=== PATIENT | female | born 1935 | race Caucasian/White ===

== ENCOUNTER 2019-06-04 10:57 | Inpatient (IN) ==
[2019-06-04 11:53] LABS: BASO# 0.04 X1000 (0.0-0.2); BASO% 1.2 % (0.0-0.8); EOS# 0.08 X1000 (0.0-0.7); EOS% 2.3 % (0.0-10.0); HEMATOCRIT 38.1 % (37.0-47.0); HEMOGLOBIN 12.6 g/dL (12.0-16.0); LYMPH# 0.72 X1000 (1.2-3.4); LYMPH% 20.9 % (20.5-51.1); MCH 31.7 PG (27-31); MCHC 33.1 g/dL (33-37); MONO# 0.38 X1000 (0.11-0.59); MPV 10.4 FL (7.4-10.4); NEUT# 2.23 X1000 (1.4-6.5); NEUT% 64.6 % (42.2-75.2); PLT 181 X1000 (130-400); RBC 3.97 XMIL (4.2-5.4); WBC 3.45 X1000 (4.8-10.8)
[2019-06-04 12:00] LABS: URINE SOURCE CLEAN CATCH
[2019-06-04 12:19] LABS: BILIRUBIN URINE NEGATIVE (NEGATIVE); BLOOD URINE NEGATIVE (NEGATIVE); COLOR YELLOW; GLUCOSE URINE NEGATIVE (NEGATIVE); KETONE URINE NEGATIVE (NEGATIVE); LEUKOCYTES URINE NEGATIVE (NEGATIVE); NITRITE URINE NEGATIVE (NEGATIVE); PROTEIN URINE 30 mg/dL (NEGATIVE); SP GRAVITY URINE 1.021; TURBIDITY URINE CLEAR (CLEAR); UROBILINOGEN URINE NORMAL (NORMAL)
[2019-06-04 12:20] LABS: ALB/GLOB RATIO 1.4; ALBUMIN 4.3 g/dL (3.5-5.0); CALCIUM 8.3 mg/dL (8.8-10.2); CREATININE 1.6 mg/dL (0.5-0.9); POTASSIUM 3.7 mmol/L (3.5-5.1); TOTAL BILIRUBIN 0.33 mg/dL (0.20-1.00); TOTAL PROTEIN 7.3 g/dL (6.3-8.3)
[2019-06-04 12:20] LABS: UR EPITHELIAL CELLS <10 /HPF (<10); URINE BACTERIA NEGATIVE /HPF; URINE RBC <10 /HPF (<10); URINE WBC <10 /HPF (<10)
[2019-06-04] MEDS ORDERED: ZOFRAN IV ONE ×2 (13:29→15:34)
[2019-06-04] MEDS: NS 500 ML IV ONE ×4 (13:29→16:20)
--- NOTE | 2019-06-04 14:38 | Diag Imaging Result Doc PS360 ---
EXAM: CT ABDOMEN/PELVIS W/O CONTRAST INDICATION: LLQ PAIN, TENDERNESS TECHNIQUE: This exam was performed using automated exposure control, adjustment of mA or kV according to patient size, and/or use of iterative reconstruction technique. COMPARISON: 05/24/2018 FINDINGS: There is stable marked cardiomegaly is stable chronic atelectasis versus minimal scarring at the lung bases. The gallbladder, liver, spleen, pancreas, and adrenal glands are grossly unremarkable. There are several punctate nonobstructing intrarenal stones bilaterally. There is no evidence of hydronephrosis. The pelvis is partially obscured by beam hardening artifact from right hip arthroplasty. Urinary bladder is grossly unremarkable as imaged. There are multiple phleboliths in the pelvis. There has been a prior hysterectomy. There is mild sigmoid colonic diverticulosis. There is no evidence of diverticulitis. The transverse colonic wall appears mildly thickened. This may be due to underdistention. However, mild colitis is possible. There is no evidence of bowel obstruction. The remainder of the GI tract is essentially unremarkable. No free abdominal gas or free fluid is identified. There is extensive aortoiliac atherosclerotic calcification. There is osteopenia and multilevel spondylosis. There is no evidence of acute osseous abnormality. IMPRESSION: 1.Mild diverticulosis coli with no evidence of diverticulitis. 2.Possible mild transverse colonic wall thickening. Although this may be due to incomplete distention, it could represent mild colitis. Please correlate clinically. 3.Other incidental/nonacute findings detailed above. Electronically signed by Nilo Elias 06/04/2019 2:35 PM
[2019-06-04] MEDS ORDERED: DILAUDID IV ONE (15:34)
--- NOTE | 2019-06-04 15:39 | PROVIDER DOCUMENTATION ---
This chart was entered by Ivelisse Huber Scribe, acting as scribe for Rey Larkin MD. HPI-Abdominal Pain/GI Problem - General Source: patient - History of Present Illness-ABD Nature of Presenting Problems: 84 y/o female presents to ED with L flank pain radiating to low abdomen and N/V onset 3 weeks ago. Pt reports her symptoms are worsening. Pt states she has hx kidney stones. Pt is alert and oriented. Abdominal Pain Onset Location: reports: flank (L) Pain Radiation: reports: RLQ, LLQ Quality of Pain: reports: sharp Severity in ED: reports: moderate, severe Onset/Duration: reports: other (3 weeks ago) Timing: reports: still present, getting worse Activities at Onset: reports: none Exposure to sick contacts?: No Modifying Factors: worse with: palpation Associated Symptoms: reports: nausea, vomiting, other (L flank pain radiating to low abdomen) Last BM: unsure Dark Stools Present?: reports: none noticed Rectal Bleeding: reports: none Rectal Pain: reports: none Similar Symptoms Previously?: No Recently seen or treated by another doctor?: No <Rey Larkin - Last Filed: 06/04/19 18:03> <Sarai Herrera - Last Filed: 06/04/19 20:01> - General Chief Complaint: Flank Pain Stated Complaint: LT SIDE PAIN Time Seen by Provider: 06/04/19 13:24 Allergies/Adverse Reactions: Patient Allergies Allergy/AdvReac Type Severity Reaction Status Date / Time Penicillins Allergy Mild RASH Verified 02/27/19 13:17 Home Medications: Home Medication List Medication Instructions Recorded Confirmed Last Taken Type Aspirin [Aspirin EC] 81 mg PO QAM 01/21/16 02/27/19 02/20/19 History Ropinirole HCl [Requip] 3 mg PO TID 01/21/16 02/27/19 08/23/18 21:00 History Levothyroxine [Synthroid] 88 microgm PO QAM 08/18/16 02/27/19 08/23/18 07:00 History Allopurinol 100 mg PO QAM 09/09/17 02/27/19 08/23/18 07:00 History Furosemide [Lasix] 40 mg PO QAM #30 tab 09/15/17 02/27/19 08/23/18 07:00 Rx Hydralazine [Apresoline] 25 mg PO TID 05/18/18 02/27/19 08/23/18 21:00 History Oxycod/Apap 7.5 mg PO PRN PRN 08/17/18 02/27/19 08/23/18 19:00 History Albuterol [Albuterol Neb] 2.5 mg INH Q4H PRN PRN 02/27/19 02/27/19 Unknown History Budesonide/Formoterol Fumarate 10.2 gm INHALATION PRN PRN 02/27/19 02/27/19 Unknown History [Symbicort 160-4.5 Mcg Inhaler] Isosorbide Dinitrate 20 mg PO TID 02/27/19 02/27/19 Unknown History Tizanidine HCl 4 mg PO BID 02/27/19 02/27/19 Unknown History Review of Systems - Adult - REVIEW OF SYSTEMS - ADULT Constitutional: denies: chills, fever Eyes: reports: no symptoms reported Ears, Nose, Mouth & Throat: reports: no symptoms reported Cardiovascular: denies: chest pain, palpitations Respiratory: denies: cough, shortness of breath Gastrointestinal: reports: abdominal pain, nausea, vomiting. denies: diarrhea Genitourinary: reports: flank pain (L). denies: incontinence Musculoskeletal: denies: back pain, joint pain Integumentary: reports: no symptoms reported Neurological: denies: dizziness/vertigo, seizure Psychiatric: reports: no symptoms reported Endocrine: reports: no symptoms reported Hematologic/Lymphatic: reports: no symptoms reported Allergic/Immunologic: reports: no symptoms reported All Other Systems: Reviewed and Negative <Rey Larkin - Last Filed: 06/04/19 18:03> Past History - Adult - PAST MEDICAL HISTORY-ADULT Review of Records: reports: Old Records Reviewed, Nursing Assessment Review, Medications Reviewed Major Childhood Illnesses: reports: denies history Cardiovascular: reports: CHF, HTN Respiratory: reports: COPD, sleep apnea Gastrointestinal: reports: denies history Obstetrical/Gynecological: reports: denies history Genitourinary: reports: kidney disease, kidney stones Musculoskeletal: reports: denies history Neurological: reports: denies history Psychiatric: reports: anxiety Endocrine/Immune: reports: Diabetes, hypoglycemia, thyroid disorder (hypo) Other Conditions: reports: denies history - PRIOR SURGERIES/PROCEDURES Surgical/Procedure History: reports: recent surgery (lumbar sx and hip replacement with in the last year ), hysterectomy, , joint replacement (hip/knee), back/neck (back) - IMMUNIZATION STATUS Childhood Immunizations: See Nurse Assessment Flu Vaccine: See Nurse Assessment - FAMILY HISTORY Family History: reviewed, not pertinent - SOCIAL HISTORY Smoking: quit greater than 1 year Substance Use: none/never Alcohol Use Frequency: never Living Situation: family <Rey Larkin - Last Filed: 06/04/19 18:03> Physical Exam-General - PHYSICAL EXAM-ADULT Initial Vital Signs Reviewed: Yes - CONSTITUTIONAL General Appearance: alert, moderate distress - EYES Eyes: PERRL/EOMI, pink conjunctivae - HEAD, EARS, NOSE, MOUTH & THROAT HENMT: normocephalic/atraumatic, moist mucous membranes, normal ENT inspection - NECK Neck: non-tender, full range of motion - RESPIRATORY Respiratory: chest non-tender, lungs clear, normal breath sounds - CARDIOVASCULAR Cardiovascular: normal peripheral pulses, regular rate, rhythm - GASTROINTESTINAL (ABDOMEN) Abdominal Exam: normal bowel sounds, soft, tenderness (LLQ/suprapubic). negative: guarding - MUSCULOSKELETAL Back Exam: normal inspection, no CVA tenderness, no vertebral tenderness Extremity: normal range of motion, non-tender. negative: pulse deficit - SKIN Integumentary: normal color, warm/dry. negative: zoster-like rash - NEUROLOGIC Neurologic: grossly normal - PSYCHIATRIC Psych/Mental Status: normal mood/affect, normal thought content, normal thought process, oriented x 3 <Rey Larkin - Last Filed: 06/04/19 18:03> Progress - PLAN OF CARE/RESULTS Progress/Plan/Lab Results: Vital Signs - 8 hr 06/04/19 11:33 Temperature 98.0 F Pulse Rate 68 Respiratory Rate 18 Blood Pressure 153/71 O2 Sat by Pulse Oximetry 97 Laboratory Results - last 24 hr 06/04/19 06/04/19 06/04/19 11:38 11:38 11:46 WBC 3.45 L RBC 3.97 L Hgb 12.6 Hct 38.1 MCV 96.0 MCH 31.7 H MCHC 33.1 RDW Std Deviation 14.0 Plt Count 181 MPV 10.4 Immature Gran % (Auto) 0.0 Neut % (Auto) 64.6 Lymph % (Auto) 20.9 [place] % (Auto) 11.0 H Eos % (Auto) 2.3 Baso % (Auto) 1.2 H Immature Gran # (Auto) 0.00 Neut # (Auto) 2.23 Lymph # (Auto) 0.72 L [place] # (Auto) 0.38 Eos # (Auto) 0.08 Baso # (Auto) 0.04 Sodium 143 Potassium 3.7 Chloride 98 Carbon Dioxide 30 Anion Gap 15 BUN 31 H Creatinine 1.6 H Estimated GFR/1.73 m2 31 BUN/Creatinine Ratio 19 Glucose 125 H Calculated Osmolality 293 Calcium 8.3 L Total Bilirubin 0.33 AST 17 ALT 12 Alkaline Phosphatase 116 H Total Protein 7.3 Albumin 4.3 Globulin 3.0 Albumin/Globulin Ratio 1.4 Amylase 111 Lipase 66 H Urine Source CLEAN CATCH Urine Color YELLOW Urine Turbidity CLEAR Urine pH 6.0 Ur Specific Russell 1.021 Urine Protein 30 A Ur Glucose (Stick) NEGATIVE Ur Ketones (Stick) NEGATIVE Urine Blood NEGATIVE Urine Nitrite NEGATIVE Urine Bilirubin NEGATIVE Urobilinogen Dipstick NORMAL Urine Leukocytes NEGATIVE Urine WBC (Auto) <10 Urine RBC (Auto) <10 U Epithel Cells (Auto) <10 Urine Bacteria (Auto) NEGATIVE Orders Category Date Time Status Saline Loc DIRECTED Care 06/04/19 11:37 Active NPO Diet 06/04/19 11:[address] ABDOMEN/PELVIS W/O CONTRAST [CT] Stat Exams 06/04/19 13:39 Completed AMYLASE [CHEM] Stat Lab 06/04/19 11:38 Completed CBC WITH ELECTRONIC DIFF [HEME] Stat Lab 06/04/19 11:38 Completed COMPREHENSIVE METABOLIC PANEL [CHEM] Stat Lab 06/04/19 11:38 Completed LIPASE [CHEM] Stat Lab 06/04/19 11:38 Completed URINALYSIS W/POSS RFLX CULT [URINALYSIS] Stat Lab 06/04/19 11:46 Completed 0.9% Sodium Chloride Inj [Ns] 500 ml Med 06/04/19 13:29 Discontinued IV 999 mls/hr Ondansetron [Zofran] Med 06/04/19 13:29 Discontinued 4 mg IV NOW ONE Result Diagrams: 06/04/19 11:38 06/04/19 11:38 - REASSESSMENT Reassessment #1 Time Reassessed: 18:02 Status: improving (Pt reports she feels much better, but her L flank pain has returned. Pt states she would like to be admitted.) - CT/MRI 1 CT Study: Abdomen, Pelvis Impression: See EMR Report ([facility] - [address], [address], [place] [address] [facility] - [address] , [place] [address] Department of Imaging Patient: MARYAM ARCE Date: 06/04/19#: [id number] : 5ADM Status: PRE ERAcct#: [id number] Age/Sex: 84/FRoom/Bed: Loc: ED Ordering Physician: Shirlene Bird Family Physician: Susie Medina MD Reason for Procedure: LLQ PAIN, TENDERNESS Signed EXAM: CT ABDOMEN/PELVIS W/O CONTRAST INDICATION: LLQ PAIN, TENDERNESS TECHNIQUE: This exam was performed using automated exposure control, adjustment of mA or kV according to patient size, and/or use of iterative reconstruction technique. COMPARISON: 05/24/2018 FINDINGS: There is stable marked cardiomegaly is stable chronic atelectasis versus minimal scarring at the lung bases. The gallbladder, liver, spleen, pancreas, and adrenal glands are grossly unremarkable. There are several punctate nonobstructing intrarenal stones bilaterally. There is no evidence of hydronephrosis. The pelvis is partially obscured by beam hardening artifact from right hip arthroplasty. Urinary bladder is grossly unremarkable as imaged. There are multiple phleboliths in the pelvis. There has been a prior hysterectomy. There is mild sigmoid colonic diverticulosis. There is no evidence of diverticulitis. The transverse colonic wall appears mildly thickened. This may be due to underdistention. However, mild colitis is possible. There is no evidence of bowel obstruction. The remainder of the GI tract is essentially unremarkable. No free abdominal gas or free fluid is identified. There is extensive aortoiliac atherosclerotic calcification. There is osteopenia and multilevel spondylosis. There is no evidence of acute osseous abnormality. IMPRESSION: 1.Mild diverticulosis coli with no evidence of diverticulitis. 2.Possible mild transverse colonic wall thickening. Although this may be due to incomplete distention, it could represent mild colitis. Please correlate clinically. 3.Other incidental/nonacute findings detailed above. Electronically signed by Nilo Elias 06/04/2019 2:35 PM 06/04/19 1435 Interpreting Physician: Nilo Elias MD Dictated Date/Time: 06/04/19 1427 cc: Shirlene Bird; Susie Medina MD) - ULTRASOUND (By Radiology) 1 US Study: Aorta Impression: See EMR Report ([facility] - [address] [facility], [address], [place] [address] [facility] - [address] [place] [address] Department of Imaging Patient: MARYAM ARCE Date: 06/04/19MR#: [id number] : 5ADM Status: REG ERAcct#: [id number] Age/Sex: 84/FRoom/Bed: Loc: ED Ordering Physician: Rey Larkin MD Family Physician: Susie Medina MD Reason for Procedure: severe LLQ pain ___ Signed EXAM: US AORTA INDICATION: severe LLQ pain TECHNIQUE: COMPARISON: None. FINDINGS: There is extensive aortoiliac atherosclerotic calcification. However, the aorta and iliac arteries remain patent. There is no evidence of aortic aneurysm. The greatest diameter of the aorta is proximally wh ere it is up to 1.7 cm in diameter. Surrounding soft tissues are unremarkable. IMPRESSION: Extensive aortoiliac atherosclerotic calcification but no evidence of aneurysm. Electronically signed by Nilo Elias 06/04/2019 5:20 PM 09/15/19 1720 Interpreting Physician: Nilo Elias MD Dictated Date/Time: 06/04/19 1718 cc: Rey Larkin MD; Susie Medina MD) - CONSULTS/PCP/HOSPITALIST Notification #1 *Consult/PCP/Hospitalist*: Hospitalist <Rey Larkin - Last Filed: 06/04/19 18:03> - PLAN OF CARE/RESULTS Progress/Plan/Lab Results: Laboratory Results - last 24 hr 06/04/19 06/04/19 06/04/19 11:38 11:38 11:46 WBC 3.45 L RBC 3.97 L Hgb 12.6 Hct 38.1 MCV 96.0 MCH 31.7 H MCHC 33.1 RDW Std Deviation 14.0 Plt Count 181 MPV 10.4 Immature Gran % (Auto) 0.0 Neut % (Auto) 64.6 Lymph % (Auto) 20.9 [place] % (Auto) 11.0 H Eos % (Auto) 2.3 Baso % (Auto) 1.2 H Immature Gran # (Auto) 0.00 Neut # (Auto) 2.23 Lymph # (Auto) 0.72 L [place] # (Auto) 0.38 Eos # (Auto) 0.08 Baso # (Auto) 0.04 Sodium 143 Potassium 3.7 Chloride 98 Carbon Dioxide 30 Anion Gap 15 BUN 31 H Creatinine 1.6 H Estimated GFR/1.73 m2 31 BUN/Creatinine Ratio 19 Glucose 125 H Calculated Osmolality 293 Calcium 8.3 L Total Bilirubin 0.33 AST 17 ALT 12 Alkaline Phosphatase 116 H Total Protein 7.3 Albumin 4.3 Globulin 3.0 Albumin/Globulin Ratio 1.4 Amylase 111 Lipase 66 H Urine Source CLEAN CATCH Urine Color YELLOW Urine Turbidity CLEAR Urine pH 6.0 Ur Specific [place] 1.021 Urine Protein 30 A Ur Glucose (Stick) NEGATIVE Ur Ketones (Stick) NEGATIVE Urine Blood NEGATIVE Urine Nitrite NEGATIVE Urine Bilirubin NEGATIVE Urobilinogen Dipstick NORMAL Urine Leukocytes NEGATIVE Urine WBC (Auto) <10 Urine RBC (Auto) <10 U Epithel Cells (Auto) <10 Urine Bacteria (Auto) NEGATIVE Orders Category Date Time Status Saline Loc DIRECTED Care 06/04/19 11:37 Active NPO Diet 06/04/19 11:[address] ABDOMEN/PELVIS W/O CONTRAST [CT] Stat Exams 06/04/19 13:39 Completed US AORTA [US] Stat Exams 06/04/19 15:41 Completed AMYLASE [CHEM] Stat Lab 06/04/19 11:38 Completed CBC WITH ELECTRONIC DIFF [HEME] Stat Lab 06/04/19 11:38 Completed COMPREHENSIVE METABOLIC PANEL [CHEM] Stat Lab 06/04/19 11:38 Completed LIPASE [CHEM] Stat Lab 06/04/19 11:38 Completed URINALYSIS W/POSS RFLX CULT [URINALYSIS] Stat Lab 06/04/19 11:46 Completed 0.9% Sodium Chloride Inj [Ns] 500 ml Med 06/04/19 15:34 Discontinued IV 150 mls/hr 0.9% Sodium Chloride Inj [Ns] 500 ml Med 06/04/19 13:29 Discontinued IV 999 mls/hr CefTRIAXONE [Rocephin] 1 gm Med 06/04/19 19:59 Active 0.9% Sodium Chloride Inj [Ns] 50 ml IV NOW Hydromorphone [Dilaudid] Med 06/04/19 15:34 Discontinued 1 mg IV NOW ONE Metronidazole 500 mg/Ns [Flagyl 500 mg/Ns] Med 06/04/19 15:35 Discontinued 500 mg in 100 ml IV NOW Ondansetron [Zofran] Med 06/04/19 13:29 Discontinued 4 mg IV NOW ONE Ondansetron [Zofran] Med 06/04/19 15:34 Discontinued 4 mg IV NOW ONE Result Diagrams: 06/04/19 11:38 06/04/19 11:38 - REASSESSMENT Reassessment #2 Status: improving (pt signed out to me by Dr. Fink pending admission for possible ischemic colitis. Discussed case wtih Dr. Sarah, hospitalist, who will see and admit pt.) <Sarai Herrera - Last Filed: 06/04/19 20:01> Departure - Departure Date of Disposition Decision: 06/04/19 Certified Medical Emergency: Emergent - Critical Care Note This patient required my direct & personal management of CC.: No <Rey Larkin - Last Filed: 06/04/19 18:03> - Departure Time of Disposition Decision: 20:01 <Sarai Herrera - Last Filed: 06/04/19 20:01> - Departure DIAGNOSIS: Colitis Disposition: ADMITTED INPATIENT 09 Condition: Stable Attestation - Physician/ ANDREW Attestation Patient care was provided by Advanced Practice Provider:: No The physician spent face to face time with patient:: Yes Advanced Practice Provider documentation review:: Supervising physician onsite and consulted in the evaluation and care of this patient. The physician did have a face to face encounter with the patient. <Rey Larkin - Last Filed: 06/04/19 18:03> This chart was documented by the indicated scribe, (Ivelisse Huber, Shankar) and accurately reflects the services I performed and decisions made by me, Rey Larkin MD, as attested by the provider's signature.
[2019-06-04] MEDS: FLAGYL 500 MG/NS 500 MG/100 ML IVPB IV ONE ×2 (16:19→17:18)
--- NOTE | 2019-06-04 17:23 | Diag Imaging Result Doc PS360 ---
EXAM: US AORTA INDICATION: severe LLQ pain TECHNIQUE: COMPARISON: None. FINDINGS: There is extensive aortoiliac atherosclerotic calcification. However, the aorta and iliac arteries remain patent. There is no evidence of aortic aneurysm. The greatest diameter of the aorta is proximally where it is up to 1.7 cm in diameter. Surrounding soft tissues are unremarkable. IMPRESSION: Extensive aortoiliac atherosclerotic calcification but no evidence of aneurysm. Electronically signed by Nilo Elias 06/04/2019 5:20 PM
[2019-06-04] MEDS ORDERED: ROCEPHIN 1 GM in NS 50 ML IV ONE (19:59)
[2019-06-04] MEDS: MORPHINE IV PRN ×2 (21:40→21:43)
[2019-06-04] MEDS: ZOFRAN IV PRN (21:44)
[2019-06-04] MEDS: ROCEPHIN 1 GM in NS 50 ML IV SCH (21:45)
--- NOTE | 2019-06-04 21:59 | HISTORY AND PHYSICAL ---
ADDENDUM: Patient seen and examined by myself. Full note dictated and discussed with nurse practitioner. Patient presents to the ER with left flank pain for the past few days. She has had nausea and vomiting for over 3 weeks. She has had hardening of her abdomen around her mesh for the past 2 or 3 months. Currently admitted to the hospital. Keep her n.p.o. We will hydrate her. Currently, her creatinine is up to 1.6. We have not done a CT with contrast. Consult GI and Surgery and will follow. cc: Rocky Sarah MD
--- NOTE | 2019-06-04 22:29 | HISTORY AND PHYSICAL ---
CHIEF COMPLAINT: Flank pain HPI: Abdominal pain with left flank pain, nausea onset 3 weeks. She also had this problem last year. She was seen by Dr. Bird at that time. Apparently, at some point she had a hernia repair with mesh. States that the pain is still continuous and worsening. On presentation they felt as if the pain was unproportional to her presentation. They were worried about mesenteric ischemia and/or a dissection. She received an aortic ultrasound. There was extensive atherosclerotic calcification but no evidence of aneurysm. CT of the abdomen and pelvis was done without contrast because of worry about her creatinine, showed mild diverticulosis coli with no evidence of diverticulitis, possible mild transverse colonic wall thickening although this could be due to incomplete distention. It could represent mild colitis. At any rate, without contrast it was not able to rule out any type of mesenteric ischemia chronic or otherwise. At this time, the patient is stable. She will be admitted with surgical and GI consultation. PAST MEDICAL HISTORY: COPD, hypertension, hypothyroidism, chronic low back pain, coronary artery disease with previous PA, systolic congestive heart failure, CKD, anemia, restless leg syndrome. PREVIOUS SURGICAL HISTORY: Low back surgery times 2, section times 3, hysterectomy, right knee surgery times 2 with replacement, right hip replacement, right shoulder surgery, knot removed from her neck, bilateral carpal tunnel release, esophageal dilation, chronic back epidurals, hernia repair with mesh and pacemaker implantation. SOCIAL HISTORY: Former smoker, quit in 1995. Lives with her daughter. No alcohol, tobacco or illicit drugs. She does use a walker to ambulate. FAMILY HISTORY: Mother secondary to congestive heart failure in her 60s. Two siblings had cancer of unknown type. REVIEW OF SYSTEM: 14 point review of systems conducted Positives listed above in HPI. PHYSICAL EXAMINATION: VITAL SIGNS: Heart rate 84, respirations 18, 153/71, oxygen saturation 97% on room air. GENERAL: Pleasant 84-year-old female alert and oriented times 3, answers all questions appropriately, looks younger than stated age, in no acute distress. HEENT: Head is atraumatic, normocephalic. Pupils equal, round, reactive to light. Extraocular eye movements intact. Sclerae are anicteric. Conjunctiva is pink. Oral mucosa is moist. NECK: Supple. No JVD. No thyromegaly. Trachea is midline. No cervical lymphadenopathy. CARDIAC: S1, S2 appreciated. No murmurs, gallops, rubs. Pacemaker noted in left chest wall. LUNGS: Clear to auscultation bilaterally. No rhonchi, wheezes, rales. Symmetric rise and fall with respirations. ABDOMEN: Soft, distended and tender diffusely in the lower abdomen as well as in the left flank. No pulsatile mass. No organomegaly. EXTREMITIES: No clubbing, cyanosis or edema. Two-plus pedal pulses bilaterally. GENITOURINARY: No bladder distention. Patient voids. Otherwise deferred. NEUROLOGICAL: Alert and oriented times 3. Cranial nerves 2 through 12 grossly intact. DIAGNOSTIC DATA: Aortic ultrasound and CT of the abdomen and pelvis: See HPI. LABORATORY DATA: WBC 3.45. Hemoglobin 12.6. Hematocrit 38.1. Platelet count 181. Sodium 143. Potassium 3.7. Chloride 98. Carbon dioxide 30. BUN 31. Creatinine 1.6. Glucose 125. Urine unremarkable. ASSESSMENT AND PLAN: 1. Abdominal pain with left flank pain. Differentials to include questionable colitis or mesenteric ischemia chronic or otherwise. The CT scan was without contrast, was not able to note any type of mesenteric ischemia. We will order an abdominal angiogram to rule out mesenteric ischemia. We will consult Surgery as well as GI. Treat the patient with morphine. We will hydrate the patient related to her CKD 3. We are aware that the patient does have congestive heart failure. We will be mindful of her fluid volume status. 2. Chronic kidney disease 3. Aware, see above. 3. Congestive heart failure. Aware. Continue home medications. 4. Hypertension. Continue home medications. 5. Hypothyroidism. Continue Synthroid. Further recommendations per patient clinical course. Dictated by CLAIRE Garcia for Rocky Sarah MD cc: CLAIRE Garcia MD [facility]
[2019-06-05] MEDS: FLAGYL 500 MG/NS 500 MG/100 ML IVPB IV SCH ×3 (00:37→20:46)
[2019-06-05] MEDS: ISORDIL PO SCH ×5 (00:55→20:45)
[2019-06-05] MEDS: APRESOLINE PO SCH ×5 (00:55→20:45)
[2019-06-05] MEDS: NS 1,000 ML IV SCH ×3 (00:56→15:07)
[2019-06-05] MEDS: MORPHINE IV PRN ×2 (01:54→06:02)
[2019-06-05] MEDS ORDERED: DILAUDID IV ONE (02:59)
[2019-06-05] MEDS: SYNTHROID PO SCH (06:46)
--- NOTE | 2019-06-05 07:45 | Diag Imaging Result Doc PS360 ---
EXAM: CT ANGIOGRAM ABDOMEN 06/04/2019 HISTORY: mesenteric ischemia? TECHNIQUE: This exam was performed using automated exposure control, adjustment of mA or kV according to patient size, and/or use of iterative reconstruction technique. COMMENT: The current examination is compared with the previous study of 05/01/2013, which is the most recent previous study performed with contrast. 3-D MIPS were performed. There is some subsegmental atelectasis in the costophrenic sulci which has worsened since the previous study. There are atherosclerotic calcifications in the ostia of both renal arteries particularly the left renal artery. There is also considerable calcific plaque in the distal portion and the lobar branches of the left renal artery. There is no evidence of aneurysm. There is calcification at the ostium of the inferior mesenteric artery. There does appear to be patency distal to this. There are calcified plaques in the superior mesenteric artery without evidence of significant stenosis. The celiac artery appears to be patent. There is no evidence of mucosal thickening in the colon. Compared to the previous study there is more calcific plaque in the superior mesenteric artery. The inferior mesenteric artery was similar in appearance previously. IMPRESSION: Atherosclerotic calcifications in the aorta and its branches as described, most significantly in the left renal artery and the proximal inferior mesenteric artery. 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 There is no evidence of ischemic colitis. Electronically signed by Monty Crisostomo 06/05/2019 7:43 AM
[2019-06-05 07:59] LABS: BASO# 0.05 X1000 (0.0-0.2); BASO% 1.5 % (0.0-0.8); EOS# 0.14 X1000 (0.0-0.7); EOS% 4.1 % (0.0-10.0); HEMATOCRIT 35.5 % (37.0-47.0); HEMOGLOBIN 11.5 g/dL (12.0-16.0); LYMPH# 1.13 X1000 (1.2-3.4); LYMPH% 32.9 % (20.5-51.1); MCH 31.4 PG (27-31); MCHC 32.4 g/dL (33-37); MONO# 0.44 X1000 (0.11-0.59); MONO% 12.8 % (1.7-9.3); MPV 10.7 FL (7.4-10.4); NEUT# 1.67 X1000 (1.4-6.5); NEUT% 48.7 % (42.2-75.2); PLT 173 X1000 (130-400); RBC 3.66 XMIL (4.2-5.4); RDW 14.1 % (11.5-14.5); WBC 3.43 X1000 (4.8-10.8)
[2019-06-05 08:37] LABS: CALCIUM 7.9 mg/dL (8.8-10.2); CREATININE 1.4 mg/dL (0.5-0.9)
[2019-06-05] MEDS: LASIX PO SCH (09:00)
[2019-06-05] MEDS: NEURONTIN PO SCH (09:01)
[2019-06-05] MEDS: ZAROXOLYN PO SCH (09:01)
[2019-06-05] MEDS: DILAUDID IV PRN ×4 (10:38→22:16)
--- NOTE | 2019-06-05 12:23 | PROGRESS NOTE ---
DATE: 06/05/2019 SUBJECTIVE: The patient reported still complaining of abdominal pain. The patient also reports chronic back pain, chronically on Percocet. OBJECTIVE: Vital Signs: Temperature 97.8 degrees, heart rate is 57, respiratory rate 18, blood pressure 133/90, O2 saturation 96% on room air. General Examination: This is an 84-year-old, female lying in bed, in no acute distress. Cardiovascular Examination: S1 and S2 heard. No murmurs, gallops, or rubs. Regular rate and rhythm. Respiratory Examination: Clear bilaterally to auscultation. No work of breathing or using accessory muscles. Abdomen: Soft. A little bit distended. Tender diffusely to palpation, mostly in the lower abdomen. No signs of peritoneal irritation. Extremities: No clubbing, cyanosis, or edema. Peripheral pulses present in both legs. Neurological Examination: The patient is alert and oriented x3. Laboratory Data: White cell count 3.43, hemoglobin 11.5, hematocrit 35.5, platelets 173,000. Creatinine 1.4. Rest of the BMP is okay. ASSESSMENT: 1. Abdominal pain. 2. Suspected ischemic colitis. 3. Chronic kidney disease stage 3. 4. Congestive heart failure. 5. Hypertension. 6. Hypothyroidism. PLAN: At this point, the patient has been admitted for abdominal pain. So far, the abdominal arteriogram has been found with no acute issues. Even though they described arteriosclerosis, it does show arteriosclerosis, calcifications in the left renal artery. 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 We have consulted gastroenterology and general surgery to see if there is anything else that we can do for this patient. At this point, considering that she reports excruciating abdominal pain, I would change the medications from morphine to Dilaudid. We will continue home medications for diabetes and for hypothyroidism. We will continue to monitor this patient closely. cc: Jae Stapleton MD
[2019-06-05] MEDS ORDERED: SODIUM CHLORIDE 0.9% INJ SCH (13:15)
[2019-06-05] MEDS ORDERED: GOLYTELY PO ONE (14:00)
[2019-06-05] MEDS: REQUIP PO SCH ×2 (14:28→18:41)
[2019-06-05] MEDS: MIRALAX PO SCH ×2 (14:32→20:45)
[2019-06-05] MEDS: PEPCID IV SCH (14:33)
[2019-06-05] MEDS ORDERED: ROCEPHIN 1 GM in NS 50 ML IV SCH (20:00)
[2019-06-05] MEDS: CULTURELLE PO SCH (20:46)
[2019-06-05] MEDS: ROCEPHIN 1 GM in NS 50 ML IV SCH (22:13)
[2019-06-05] MEDS: ZOFRAN IV PRN (23:58)
[2019-06-06] MEDS: DILAUDID IV PRN ×5 (02:17→18:36)
[2019-06-06] MEDS: NS 1,000 ML IV SCH ×3 (05:14→14:03)
[2019-06-06] MEDS: PEPCID IV SCH ×2 (05:15→17:53)
[2019-06-06] MEDS: FLAGYL 500 MG/NS 500 MG/100 ML IVPB IV SCH ×3 (05:15→20:56)
--- NOTE | 2019-06-06 06:08 | CONSULTATION ---
DATE OF CONSULTATION: 06/05/2019 CHIEF COMPLAINT: Abdominal pain radiating to the flank area. HISTORY OF PRESENT ILLNESS: Abdominal pain radiating to left flank area, nausea, onset 3 weeks. She also had the same issues going on for the 07/2018 when she had been seen by DR. Bird, and he had a hernia repair done. She says that the pain has been continuous, and it is getting worse. They did aortic ultrasound, and there was extensive atherosclerotic calcification, no evidence of aneurysm. CT of the abdomen and pelvis was done without contrast, and it showed diverticulosis coli with absence of diverticulosis, possible mild transverse colonic wall thickening, although this could have been due to the abdominal distention. It also showed that she has mild colitis. PAST MEDICAL HISTORY: This patient has COPD, hypothyroidism, chronic low back pain, coronary artery disease with an [place], systolic congestive heart failure, chronic kidney disease, anemia, and restless leg syndrome. PAST SURGICAL HISTORY: History of back surgery x2, , hysterectomy, right knee surgery with replacement, right hip replacement, right shoulder surgery, esophageal dilation, hernia repair with mesh and a pacemaker implantation. SOCIAL HISTORY: She is a former smoker, and she quit in 1995. Lives with daughter. Denies drinking any alcohol, tobacco or illicits. She uses a walker to ambulate around. FAMILY HISTORY: Mother secondary to congestive heart failure in the , and 2 siblings had cancer of unknown type. MEDICATIONS: Allopurinol, she is getting ceftriaxone, Lasix, gabapentin, hydralazine. She gets hydromorphone for pain 1 mg every 3 hours, isosorbide, levothyroxine, metolazone, Flagyl, Zofran. REVIEW OF SYSTEMS: Patient has chronic back pain, Patient has h/o kidney stones, diverticulosis and constipation. Denies any blood in stool, or vomiting blood. Denies fever, rigors and chills. PHYSICAL EXAMINATION: Vital signs: Temperature is 97.8, pulse 57, respirations 18, blood pressure is 133/90, oxygen saturation is 96% on room air. She is an 84-year-old female, alert and oriented x3, has appropriately answered all the questions, was in no acute distress but complained of the left abdominal pain. HEENT: Head is atraumatic and normocephalic. Pupils equal, round and reactive to light. Extraocular movements were intact. Anicteric sclerae. Conjunctivae pink. Oral mucosa is moist. Neck is supple. No JVD. Trachea is midline. No cervical lymphadenopathy noted. Cardiac: S1, S2. No murmurs, gallops or rubs. She has a pacemaker noted on the left chest. Lungs: Clear to auscultation. No abnormal breath sounds heard. Abdomen: Soft, distended and tender diffusely to the lower left quadrant as well as in the left flank area. Extremities: No clubbing. No cyanosis. No edema noted. Pedal pulses 2+ bilaterally. No bladder distention. The patient voids. Neurologic: She is alert and oriented x3. DIAGNOSTIC DATA: The patient's WBC is 3.43, RBC is 3.6, hemoglobin 11.5, hematocrit 35.5, platelets 173,000. Sodium 142, potassium 5.2, chloride 103, carbon dioxide 32, anion gap is 7, BUN is 28, creatinine 1.4, glucose is 93, calcium 7.9, magnesium is 2.2. Urine culture shows urine protein of 30. ASSESSMENT: 1. Abdominal pain to left flank. CT scan was without contrast and was not able to give any type of mesentery ischemia. Abdominal angiogram was ordered. Unclear if patient has colitis causing the above symptoms. Will schedule for colonoscopy if stool studies are negative. Risks benefits indications and alternatives were explained to the patient and all questions were answered. 2. The patient has chronic kidney disease, congestive heart failure, hypertension, hypothyroidism. These are being managed per Primary care team. 3. Constipation: Start Miralax 17g twice daily. 4. Diverticulosis: Avoid excessive corn nuts and seeds in diet. PLAN: Plan of care will be discussed with Dr. Reyes. Dictated by CLAIRE Corrales for Porfirio Reyes MD cc: Porfirio Reyes MD I seen and examined the patient. I have reviewed the labs, imaging, and other documentation. I discussed the case with Love Asher AUTOMATIC PAINT SPRAYER OPERATOR and agree with the findings and plan as documented. If brief, Ms. Chely Pena is a 84 year old woman admitted with chronic lower back, LLQ pain found to have ? colitis on imaging concerning for probable ischemia. Will continue prep today with plan for diagnostic colonoscopy tomorrow. [facility]
--- NOTE | 2019-06-06 07:34 | GENERAL SURGERY CONSULTATION ---
DATE: 06/05/2019 HISTORY OF PRESENT ILLNESS: Ms. Pena is an 84-year-old admitted with left lower quadrant abdominal pain. She underwent an abdominal aortogram which showed no celiac or SMA stenosis. PAST MEDICAL HISTORY: Her past history is pertinent for COPD, hypertension, hypothyroidism, chronic low back pain, coronary artery disease, systolic congestive heart failure, chronic kidney disease, anemia, and restless legs syndrome. PAST SURGICAL HISTORY: Previous surgery includes low back surgery x2, section x3, hysterectomy, right knee surgery x2, with right hip replacement, right shoulder surgery, knot removed from her neck, bilateral carpal tunnel release, esophageal dilatation, chronic back epidurals, an abdominal laparoscopic hernia repair with mesh by Dr. Swanson in August 2018, and a pacemaker implantation. SOCIAL HISTORY: She lives with her daughter. No tobacco, alcohol, or illicit drug use. FAMILY HISTORY: Pertinent for congestive heart failure. REVIEW OF SYSTEMS: Negative in other subsystems. PHYSICAL EXAMINATION: Vital Signs: She is afebrile, heart rate 59, blood pressure 135/81. No cervical adenopathy. Bilateral breath sounds. Heart: Regular rate and rhythm. Abdomen: Soft. She is tender in the left lower quadrant. No hernia is palpated. There is evidence of a laparoscopic hernia repair in the mid abdomen. No peripheral edema. She is awake and alert. DIAGNOSTICS/LABS: White count is normal. ASSESSMENT: Chronic abdominal pain. There is no evidence of hernia. PLAN: She is scheduled for a colonoscopy, I think, in the not too-distant future for further evaluation of her pain. She does not have mesenteric ischemia. cc: Jean Bird MD
[2019-06-06 08:10] LABS: BASO# 0.07 X1000 (0.0-0.2); BASO% 1.5 % (0.0-0.8); EOS# 0.06 X1000 (0.0-0.7); EOS% 1.3 % (0.0-10.0); HEMATOCRIT 35.6 % (37.0-47.0); HEMOGLOBIN 11.4 g/dL (12.0-16.0); LYMPH# 0.89 X1000 (1.2-3.4); LYMPH% 19.1 % (20.5-51.1); MCV 96.7 FL (81-99); MONO# 0.51 X1000 (0.11-0.59); MPV 10.3 FL (7.4-10.4); NEUT# 3.12 X1000 (1.4-6.5); NEUT% 67.1 % (42.2-75.2); PLT 156 X1000 (130-400); RBC 3.68 XMIL (4.2-5.4); RDW 14.2 % (11.5-14.5); WBC 4.65 X1000 (4.8-10.8)
[2019-06-06 08:55] LABS: ALB/GLOB RATIO 1.8; CALCIUM 8.6 mg/dL (8.8-10.2); CREATININE 1.1 mg/dL (0.5-0.9); POTASSIUM 4.4 mmol/L (3.5-5.1); TOTAL BILIRUBIN 0.5 mg/dL (0.20-1.00); TOTAL PROTEIN 6.2 g/dL (6.3-8.3)
[2019-06-06] MEDS: ZAROXOLYN PO SCH (09:33)
[2019-06-06] MEDS: ISORDIL PO SCH ×3 (09:33→20:56)
[2019-06-06] MEDS: REQUIP PO SCH ×3 (09:33→17:52)
[2019-06-06] MEDS: NEURONTIN PO SCH (09:33)
[2019-06-06] MEDS: MIRALAX PO SCH ×2 (09:33→20:57)
[2019-06-06] MEDS: CULTURELLE PO SCH ×2 (09:33→20:56)
[2019-06-06] MEDS: LASIX PO SCH (09:34)
[2019-06-06] MEDS: ZYLOPRIM PO SCH (09:34)
[2019-06-06] MEDS: APRESOLINE PO SCH ×3 (09:34→20:56)
[2019-06-06] MEDS: SYNTHROID PO SCH (10:40)
--- NOTE | 2019-06-06 11:15 | PROVIDER PROGRESS NOTE ---
Progress Note SUBJECTIVE: Ms. Pena was resting in bed, c/o abdominal pain on the left lower quadrant radiating to the back and feeling nauseated. OBJECTIVE: Keila signs: Temparature 98.7 degrees, Pulse 61, respiration 18, BP 153/62, O2 97% on RA. General: Ms. Pena is 84 year female resting in bed, AO x 3, answering questions appropriately, in acute distress. Cardiovascular: S1 S2 heard on auscultation, no murmurs, gallops or rubs heard. Lungs: Clear to ascultation anterior and posterior gaytan, no abnormal breath sounds heard. Abdomen: Soft, distended and tender on palpation on the left lower quadrant and flank area. Extrmeties: No edema, clubbing or cynosis noted, prepheral pulses present 2+ bilaterally. Neurology: Ms. Pena is AO x 3. LABS: WBC 4.65, RBC 3.68, hemaglobin 11.4, hematocrit 35.6, plateletes [id number], Creatinine 1.1, rest of the BMP is within normal range. ASSESSMENT: 1. Abdominal pain 2. Chronic Kidney disease 3. Congestive heart failure 4. Hypertension 5. Hypothyroid 6. suspected ischemic colitis 7. Anemia 8. Dysphagia 9. Nausea PLAN: Patient is on clear liquid diet, NPO after midnight, had not completed the prep for colonoscopy, plan is to complete the prep today and have the colonoscopy tomorrow 05/28/2019 to rule out ischemic colitis and anemia. This plan was discussed with Dr. Chaves and the patient, risk and benefits of the procedure explained, patient verbally acnowledged understanding of the instructions, any other treatment plan would be based on the colonoscopy results. (Love Asher) I seen and examined the patient. I have reviewed the labs, imaging, and other documentation. I discussed the case with Love Asher AUTO SERVICE ADVISOR and agree with t he findings and plan as documented. If brief, Ms. Chely Pena is a 84 year old woman admitted with acute LLQ pain found to have colitis on imaging concerning for probable ischemia. She reports some improvement this AM. She has not completed prep and stools are not clear. Will continue prep today with plan for diagnostic colonoscopy tomorrow. (Iraj Chaves Jr)
[2019-06-06] MEDS ORDERED: BENTYL IM ONE (16:48)
--- NOTE | 2019-06-06 17:30 | PROGRESS NOTE ---
DATE: 06/06/2019 SUBJECTIVE: Patient has no major complaints. OBJECTIVE: Blood pressure is 147/58, heart rate 60, respiratory rate 18, temperature 98.2 degrees, 97% on room air.Cardiovascular: Regular rate and rhythm. Pulmonary: Bilateral breath sounds clear to auscultation. GI: Soft, nontender, nondistended. Bowel sounds are positive. LABORATORY DATA: White count 4, hemoglobin and hematocrit 11, 35, platelets 156,000, creatinine 1.1. PROBLEM LIST: Abdominal pain without clear evidence of source. There is some concern over ischemic colitis but that has not been confirmed by any imaging. Her CT which was done without IV or oral contrast so of limited utility did not show pathology except for possibly some colon wall thickening. Aortic ultrasound was negative. Arteriogram showed chronic changes but no evidence of ischemic colitis specifically and there was no evidence of stenosis specifically, there is calcification, would think there would have to be significant stenosis to cause mesenteric ischemia. Colonoscopy will be done tomorrow and will follow. At this point we may be dealing with something fairly simple such as irritable bowel syndrome so we will treat accordingly. We will continue to monitor. cc: Ihsan Fish MD
[2019-06-06] MEDS: ROCEPHIN 1 GM in NS 50 ML IV SCH (20:54)
[2019-06-07] MEDS: DILAUDID IV PRN ×6 (00:16→20:54)
[2019-06-07] MEDS: FLAGYL 500 MG/NS 500 MG/100 ML IVPB IV SCH ×3 (04:39→20:55)
[2019-06-07] MEDS: NS 1,000 ML IV SCH ×2 (04:41→17:46)
[2019-06-07] MEDS: PEPCID IV SCH ×2 (04:45→17:35)
[2019-06-07] MEDS: ZOFRAN IV PRN (04:49)
[2019-06-07] MEDS: SYNTHROID PO SCH (06:08)
[2019-06-07 07:42] LABS: BASO# 0.05 X1000 (0.0-0.2); BASO% 1.5 % (0.0-0.8); HEMATOCRIT 33.7 % (37.0-47.0); LYMPH% 24.3 % (20.5-51.1); MCH 31.3 PG (27-31); MCHC 32.6 g/dL (33-37); MCV 95.7 FL (81-99); MONO# 0.41 X1000 (0.11-0.59); MONO% 12.5 % (1.7-9.3); NEUT# 1.93 X1000 (1.4-6.5); NEUT% 58.7 % (42.2-75.2); PLT 152 X1000 (130-400); RBC 3.52 XMIL (4.2-5.4); RDW 13.7 % (11.5-14.5); WBC 3.29 X1000 (4.8-10.8)
[2019-06-07 08:04] LABS: CALCIUM 8.4 mg/dL (8.8-10.2); CREATININE 1.2 mg/dL (0.5-0.9); POTASSIUM 3.3 mmol/L (3.5-5.1)
[2019-06-07] MEDS: CULTURELLE PO SCH ×2 (08:12→20:54)
[2019-06-07] MEDS: APRESOLINE PO SCH ×3 (08:12→20:54)
[2019-06-07] MEDS: MIRALAX PO SCH ×2 (08:13→20:54)
[2019-06-07] MEDS: LASIX PO SCH (08:13)
[2019-06-07] MEDS: ISORDIL PO SCH ×3 (08:13→20:54)
[2019-06-07] MEDS: REQUIP PO SCH ×3 (08:14→17:35)
[2019-06-07] MEDS: ZAROXOLYN PO SCH (08:14)
[2019-06-07] MEDS: NEURONTIN PO SCH (08:14)
[2019-06-07] MEDS: ZYLOPRIM PO SCH (08:15)
[2019-06-07] MEDS ORDERED: DIPRIVAN 1% ONE (08:56)
[2019-06-07] MEDS ORDERED: XYLOCAINE-MPF 2% ONE (09:35)
[2019-06-07] MEDS ORDERED: ROBINUL ONE (09:35)
--- NOTE | 2019-06-07 09:40 | ENDOSCOPY OPERATIVE NOTE ---
[facility] ENDOSCOPY OPERATIVE NOTE , PATIENT: Chely Pena ADM DATE: 06/07/2019 MR #: [id number] : 1935 COLONOSCOPY PROCEDURE REPORT PROCEDURE DATE: 06/07/2019 SURGEON: Iraj Chaves MD STATUS: inpatient MEDICAL CASE WORKER: PREOPERATIVE DIAGNOSIS: The patient is a 84 yr old female here for a colonoscopy due to abdominal pa in in the lower left quadrant and an abnormal CT. PROCEDURE PERFORMED: Colonoscopy, diagnostic MEDICATIONS: Per Anesthesia PREP TYPE: GoLytely
[2019-06-07] MEDS: BENTYL PO SCH ×2 (14:18→17:46)
[2019-06-07] MEDS ORDERED: NS 50 ML ONE (15:48)
[2019-06-07] MEDS ORDERED: KLOR-CON PO ONE (16:02)
--- NOTE | 2019-06-07 18:11 | PROGRESS NOTE ---
DATE: 06/07/2019 She is still complaining of pain. She feels like it is unbearable. It is in her left lower quadrant now. In 2018, it looks like May and August she had a diagnostic laparoscopy and an incisional hernia repair previously. So that is just very weird atypical symptoms. She had surgery in May 2000 for chronic left lower quadrant pain with a history of diverticulosis as well as kidney stones. This pain has been going on for over a year, looking at the data, and she had a colonoscopy that was negative then. She had a colonoscopy that was negative now so I do not really understand. 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 She had surgery in August with laparoscopy with repair of a large incisional hernia in her lower abdomen so I do not know. The pain is persistent, but I cannot find anything objective, and this pain it looks like has been there for over a year so unusual, and there is no clear etiology based on imaging or endoscopy. Her CT was done without contrast on admission so I am going to repeat that, but we may just have to consider outpatient follow-up if there is nothing alarming on her CT and pain control. I am going to get Dr. Swanson to take a look at her. Dr. Bird saw her and felt that there was nothing surgical, but Dr. Swanson has seen her several times previously. This is very odd situation for her. In any case, we will continue to monitor. Continue pain control and the differential now also includes malingering and [place] and things of that nature because we do not really clearly have any significant etiology. She could have irritable bowel as well, but there is no evidence of mesenteric ischemia. There is no evidence of obstruction or mass to explain her degree of pain so we will follow. cc: Ihsan Fish MD
[2019-06-07] MEDS: ROCEPHIN 1 GM in NS 50 ML IV SCH (23:55)
[2019-06-08] MEDS: DILAUDID IV PRN ×7 (01:14→21:25)
[2019-06-08] MEDS: NS 1,000 ML IV SCH ×2 (04:19→18:07)
[2019-06-08] MEDS: FLAGYL 500 MG/NS 500 MG/100 ML IVPB IV SCH ×3 (04:20→21:25)
[2019-06-08] MEDS: PEPCID IV SCH ×2 (04:22→18:08)
[2019-06-08] MEDS ORDERED: STERILE WATER INJ. ONE (04:25)
[2019-06-08] MEDS: SYNTHROID PO SCH (06:05)
--- NOTE | 2019-06-08 07:30 | Diag Imaging Result Doc PS360 ---
EXAM: CT ABD/PELVIS W/PO AND IV CON INDICATION: severe pain in llq TECHNIQUE: This exam was performed using automated exposure control, adjustment of mA or kV according to patient size, and/or use of iterative reconstruction technique. COMPARISON: 06/04/2019 FINDINGS: There is stable marked cardiomegaly. There is mild subsegmental atelectasis and/or scarring at the lung bases. The liver, gallbladder, spleen, pancreas, and adrenal glands are essentially unremarkable. There are a few small renal cysts bilaterally. There is at least one punctate nonobstructing intrarenal stone on the left. There is no hydronephrosis. The pelvis is slightly obscured by beam hardening artifact from right hip arthroplasty. The urinary bladder is grossly unremarkable. There has likely been a prior hysterectomy. There are a few small sigmoid colonic diverticula but there is no evidence of diverticulitis. There is questionable minimal mucosal thickening involving a long segment of the mid sigmoid colon. It is possible that this represents very mild colitis. There is no pericolonic inflammatory stranding. No other bowel wall thickening is identified. There is no evidence of bowel obstruction. The remainder of the GI tract is essentially unremarkable. There is trace free fluid in the pelvis that is nonspecific. There is no free abdominal gas. There is extensive aortoiliac atherosclerotic calcification. There is multilevel lumbar spondylosis. There is no evidence of acute osseous abnormality. IMPRESSION: 1.Questionable very mild mucosal thickening involving the sigmoid colon, which can be seen with mild colitis. There is no evidence of diverticulitis. 2.Trace fluid layering in the pelvis that is nonspecific. If there is colitis, could be related to this. 3.Other incidental/nonacute findings detailed above. Electronically signed by Nilo Elias 06/08/2019 7:28 AM
[2019-06-08 08:27] LABS: HEMATOCRIT 35.4 % (37.0-47.0); HEMOGLOBIN 11.6 g/dL (12.0-16.0); LYMPH% 28.1 % (20.5-51.1); MCH 31.4 PG (27-31); MCHC 32.8 g/dL (33-37); MCV 95.9 FL (81-99); MPV 11.8 FL (7.4-10.4); PLT 135 X1000 (130-400); RBC 3.69 XMIL (4.2-5.4); WBC 3.45 X1000 (4.8-10.8)
[2019-06-08 08:28] LABS: BASO# 0.05 X1000 (0.0-0.2); BASO% 1.4 % (0.0-0.8); EOS# 0.17 X1000 (0.0-0.7); EOS% 4.9 % (0.0-10.0); LYMPH# 0.97 X1000 (1.2-3.4); MONO# 0.47 X1000 (0.11-0.59); MONO% 13.6 % (1.7-9.3); NEUT# 1.79 X1000 (1.4-6.5)
[2019-06-08 08:35] LABS: ALB/GLOB RATIO 1.3; ALBUMIN 3.6 g/dL (3.5-5.0); CALCIUM 8.4 mg/dL (8.8-10.2); CREATININE 1.4 mg/dL (0.5-0.9); POTASSIUM 3.8 mmol/L (3.5-5.1); TOTAL BILIRUBIN 0.27 mg/dL (0.20-1.00); TOTAL PROTEIN 6.4 g/dL (6.3-8.3)
[2019-06-08] MEDS: MIRALAX PO SCH ×2 (09:32→21:50)
[2019-06-08] MEDS: APRESOLINE PO SCH ×3 (09:33→21:25)
[2019-06-08] MEDS: BENTYL PO SCH ×3 (09:33→18:07)
[2019-06-08] MEDS: REQUIP PO SCH ×3 (09:33→18:07)
[2019-06-08] MEDS: ZAROXOLYN PO SCH (09:33)
[2019-06-08] MEDS: NEURONTIN PO SCH (09:33)
[2019-06-08] MEDS: ZYLOPRIM PO SCH (09:34)
[2019-06-08] MEDS: ISORDIL PO SCH ×3 (09:34→21:25)
[2019-06-08] MEDS: CULTURELLE PO SCH ×2 (09:34→21:25)
[2019-06-08] MEDS: LASIX PO SCH (09:38)
--- NOTE | 2019-06-08 12:51 | PROGRESS NOTE ---
DATE: 06/08/2019 SUBJECTIVE: The patient reports continues to be in severe abdominal pain. Upon my examination, she does not look to be in abdominal pain but she reports being an 08/10 intensity but she is not grimacing in pain or looking to be in any distress because of this severe pain she claims. OBJECTIVE: Vital Signs: Temperature 98.2 degrees, heart rate 60, respiratory rate 18, blood pressure 159/66, and O2 saturation 96% on room air. General: This is an 84-year-old female lying in bed in no acute distress. Cardiovascular: S1, S2 heard. No murmurs, gallops, or rubs. Regular rate and rhythm. Respiratory: Clear bilaterally to auscultation. No work of breathing or using accessory muscles. Abdomen: Soft. A little bit distended. Mild tenderness to palpation all over, but there are no signs of peritoneal irritation. Bowel sounds present. No organomegaly. Extremities: No clubbing, cyanosis, or edema. Peripheral pulses present in both legs. Neurological: The patient is alert and oriented x3. Moves all 4 extremities. LABORATORY DATA: There is a BMP that shows creatinine 1.4. Normal CBC with hemoglobin 11.6. ASSESSMENT AND PLAN: 1. Abdominal pain/suspected ischemic colitis. That is basically the reason why this patient came to the emergency department. She continues to complain of abdominal pain. So far, we have done a CT of the abdomen. We did not find anything that could explain her pain. Gastroenterology has evaluated this patient, and they did a colonoscopy which according to them did not explain the symptoms that this patient has. This patient continues as we mentioned before, to complain of abdominal pain. The patient requests to have an exploratory laparotomy by Surgery to find out the reason why this patient continues to be in pain. At this point, I prefer to go ahead and order an MRCP.-Apparently, they were suspecting also this patient may have a back pain that is related to the abdomen. In that regard, we are going to check a CT of the lumbar pelvic spine, and see if there is anything wrong with bony structures. Also, because the patient states she refers even though it is all over her abdomen, it is mostly noted in the left lower quadrant so, we are going to order an abdominal ultrasound as well. If all of this returns negative, we will talk with surgeon to see if exploratory laparotomies is an option for her. If not, this patient can be discharged because from medical standpoint I do not see what is the reason why this patient is complaining and requiring a lot of pain medication. In any case, we will continue to monitor. 2. Chronic kidney disease stage 3. We will continue to monitor BMP. 3. Congestive heart failure. Patient is not on any exacerbation, and not having any shortness of breath. We will continue to monitor. 4. Hypertension. Blood pressure is under control. We will continue with the same medications. 5. Hypothyroidism stable. cc: Jae Stapleton MD
--- NOTE | 2019-06-08 13:10 | Diag Imaging Result Doc PS360 ---
EXAM: US PELVIC NON-OB COMPLETE 06/08/2019 HISTORY: left pelvic pain TECHNIQUE: Pelvic ultrasound COMMENT: The urinary bladder is not distended. There is no evidence of free fluid. The uterus is surgically absent. Neither ovary is identified. The patient refused endovaginal scanning. IMPRESSION: No definite abnormality. Electronically signed by Monty Crisostomo 06/08/2019 1:07 PM
--- NOTE | 2019-06-08 13:33 | Diag Imaging Result Doc PS360 ---
EXAM: CT LUMBAR SPINE W/O CONTRAST INDICATION: back pain TECHNIQUE: This exam was performed using automated exposure control, adjustment of mA or kV according to patient size, and/or use of iterative reconstruction technique. COMPARISON: 11/06/2011 FINDINGS: There is worsened anterolisthesis of L4 on L5 as compared to the previous study. However, there has also been an interval fusion and laminectomy at this level. The bones are osteopenic. There is multilevel degenerative disc disease throughout the lumbar spine that is stable to slightly worse than the previous study. There are several broad-based disc osteophyte complexes throughout the lumbar spine. There appear to be causing only mild central canal narrowing, however. Otherwise, there is no discrete fracture, acute subluxation, or significant intrinsic osseous lesion. There are a few small hyperdense renal cortical foci bilaterally that are nonspecific. They may represent blood filled cyst. It is not seen on the previous study. If warranted, consider follow-up with contrast enhanced CT if not contraindicated versus renal ultrasound. IMPRESSION: 1.Interval fusion and laminectomy at L4-5 and multilevel degenerative arthropathy that is probably slightly worse than the previous study. 2.Several hyperdense renal cortical foci as detailed above. Electronically signed by Nilo Elias 06/08/2019 1:30 PM
--- NOTE | 2019-06-08 17:02 | PROVIDER PROGRESS NOTE ---
Progress Note SUBJECTIVE: Ms. Pena was resting in bed, c/o abdominal pain on the left lower quadrant radiating to the back and feeling nauseated. OBJECTIVE: Keila signs: Temparature 98.3 degrees, Pulse 59, respiration 19, BP 156/69, O2 98% on RA. General: Ms. Pena is 84 year female resting in bed, AO x 3, answering questions appropriately, in acute distress. Cardiovascular: S1 S2 heard on auscultation, no murmurs, gallops or rubs heard. Lungs: Clear to ascultation anterior and posterior gaytan, no abnormal breath sounds heard. Abdomen: Soft, distended and tender on palpation on the left lower quadrant and flank area, active bowel sounds heard in all four quadrant. Extrmeties: No edema, clubbing or cynosis noted, prepheral pulses present 2+ bilaterally. Neurology: Ms. Pena is AO x 3. LABS: WBC 3.45, RBC 3.69, hemaglobin 11.6, hematocrit 35.4, plateletes [id number], Creatinine 1.1, sodium 140, potassium 3.8, Co2 102, BUN 12, Creatinine 1.4 ASSESSMENT: 1. Abdominal pain 2. Chronic Kidney disease 3. Congestive heart failure 4. Hypertension 5. Hypothyroid 6. suspected ischemic colitis 7. Anemia 8. Dysphagia 9. Nausea PLAN: Patient is on GI soft diet. At present we will ask the PCP to evaluate her cause of her back pain. At present there is no evidence of diverticulitis. Patient is advised to avoid foods with nuts and seeds, add fiber to her diet and continue GI prophylaxis. We will continue with the plan of care as per the PCP. This paln was discussed with Dr. Reyes and the patient, patient acknowledged understanding of the plan of care. Please call us for any questions and concerns. (Love Asher) Need to evaluate for spine pathology causing chronic back pain and abdominal discomfort. I have seen the patient myself and discussed the above findings and plan of care with nurse practitioner. Discussed with the patient at bedside and all questions were answered. Please call us with any further questions. (Porfirio Reyes.)
[2019-06-08] MEDS: ZOFRAN IV PRN (21:25)
[2019-06-09] MEDS: DILAUDID IV PRN ×2 (00:15→03:39)
[2019-06-09] MEDS: ROCEPHIN 1 GM in NS 50 ML IV SCH (00:15)
[2019-06-09] MEDS: FLAGYL 500 MG/NS 500 MG/100 ML IVPB IV SCH (04:51)
[2019-06-09] MEDS: PEPCID IV SCH (04:51)
[2019-06-09] MEDS: SYNTHROID PO SCH (06:32)
[2019-06-09] MEDS: PERCOCET-5 PO PRN ×2 (06:32→12:17)
[2019-06-09 07:35] VITALS: BP 163/76
[2019-06-09 08:14] LABS: BASO# 0.05 X1000 (0.0-0.2); BASO% 1.1 % (0.0-0.8); EOS# 0.14 X1000 (0.0-0.7); HEMATOCRIT 35.6 % (37.0-47.0); HEMOGLOBIN 11.7 g/dL (12.0-16.0); LYMPH# 0.84 X1000 (1.2-3.4); LYMPH% 17.9 % (20.5-51.1); MCH 31.5 PG (27-31); MCHC 32.9 g/dL (33-37); MCV 95.7 FL (81-99); MONO# 0.61 X1000 (0.11-0.59); MPV 10.3 FL (7.4-10.4); NEUT# 3.04 X1000 (1.4-6.5); PLT 158 X1000 (130-400); RBC 3.72 XMIL (4.2-5.4); WBC 4.68 X1000 (4.8-10.8)
[2019-06-09 08:34] LABS: CALCIUM 8.6 mg/dL (8.8-10.2); CREATININE 1.1 mg/dL (0.5-0.9); POTASSIUM 3.8 mmol/L (3.5-5.1)
[2019-06-09] MEDS: MIRALAX PO SCH ×2 (10:08→10:11)
[2019-06-09] MEDS: APRESOLINE PO SCH (10:08)
[2019-06-09] MEDS: REQUIP PO SCH (10:08)
[2019-06-09] MEDS: ZAROXOLYN PO SCH (10:09)
[2019-06-09] MEDS: LASIX PO SCH (10:09)
[2019-06-09] MEDS: BENTYL PO SCH (10:09)
[2019-06-09] MEDS: NEURONTIN PO SCH (10:09)
[2019-06-09] MEDS: NS 1,000 ML IV SCH (10:09)
[2019-06-09] MEDS: ISORDIL PO SCH (10:09)
[2019-06-09] MEDS: ZYLOPRIM PO SCH (10:09)
[2019-06-09] MEDS: CULTURELLE PO SCH (10:09)
--- NOTE | 2019-06-09 11:29 | PROVIDER PROGRESS NOTE ---
Progress Note SUBJECTIVE: Ms. Pena was sitting in bed, c/o abdominal pain on the left lower quadrant radiating to the back, denied having nausea , had 1 BM, denied any blood in the stools. OBJECTIVE: Keila signs: Temperature 97.3 degrees, Pulse 54, respiration 18, BP 163/76, O2 96% on RA. General: Ms. Pena is 84 year female sitting in bed, AO x 3, answering questions appropriately, in no acute distress. Cardiovascular: Regular rate and rhythm. Lungs: Clear to auscultation anterior and posterior gaytan, no abnormal breath sounds heard. Abdomen: Soft, distended and tender on palpation on the left lower quadrant and flank area, active bowel sounds heard in all four quadrant. Extremities: No edema, clubbing or cynosis noted, prepheral pulses present 2+ bilaterally. Neurology: Ms. Pena is AO x 3. LABS: WBC 4.68, hemaglobin 11.7, hematocrit 35.6, plateletes [id number], BUN 11, Creatinine 1.1, sodium 139, potassium 3.8, 28, BUN 11, Creatinine 1.1, calcium 8.6. ASSESSMENT: 1. Abdominal pain 2. Chronic Kidney disease 3. Congestive heart failure 4. Hypertension 5. Hypothyroid 6. suspected ischemic colitis 7. Anemia 8. Dysphagia 9. Nausea PLAN: Patient is on GI soft diet. Pelvic U/s revealed no definite abnormality and CT lumbar spine showed interval fusion an laminectomy at L4-5, multilevel degenerative arthropathy, and several hyperdense renal cortical foci. At present there is no evidence of diverticulitis. Patient is advised to avoid foods with nuts and seeds, add fiber to her diet and continue GI prophylaxis and she can follow up with us after discharged from the hospital. We will continue with the plan of care as per the PCP. This paln was discussed with Dr. Ravi and the patient, patient acknowledged understanding of the plan of care. Please call us for any questions and concerns. Please forward this note to Dr. Chaves. (Love Asher) I seen and examined the patient. I have reviewed the labs, imaging, and other documentation. I discussed the case with Love Asher TREER and agree with the findings and plan as documented. In brief, Ms. Pena is a 84 year old woman who presented with LLQ pain of unclear etiology. She was ruled out for diverticulitis and ischemic colitis. Colonoscopy revealed colonic polyps and diverticulosis without diverticulitis. No pancreatitis. She continues to pain that is not aggravated or relieved with PO intake or bowel movements. No rectal bleeding or melena. She had EGD recently in 04/2019 that showed gastritis. She also had imaging of mesentery that was negative for mesenteric ischemia; evaluated by Dr. Bird. She can continue PPI therapy and follow-up with Dr. Arroyo as an outpatient. Her abdominal does not appear to be luminal and may not be GI-related. Will sign off. Please call with questions. (Iraj Chaves Jr)
--- NOTE | 2019-06-10 04:31 | DISCHARGE SUMMARY ---
ADMISSION DATE: 06/04/2019 DISCHARGE DATE: 06/09/2019 ADMITTING DIAGNOSIS: 1. Abdominal pain. 2. Chronic kidney disease stage III. 3. Congestive heart failure. 4. Hypertension. 5. Hypothyroidism. DISCHARGE DIAGNOSIS: 1. Abdominal pain. 2. Chronic kidney disease. 3. Congestive heart failure. 4. Hypertension. 5. Hypothyroidism. 6. Anemia. PROCEDURES AND FINDINGS: Colonoscopy performed on 06/07/2019 showed three 3 to 5 mm polyps were found in the right colon. An ultrasound of the aorta was performed on 06/04/2019, showed extensive aortoiliac arthrosclerotic calcification, but no evidence of aneurysm. An abdominal arteriogram was performed on 06/04/2019, showed atherosclerotic calcifications in the aorta and branches, most significant in the left renal artery and proximal inferior mesenteric artery, inferior mesentery artery abnormalities were probably chronic and were present in 2012. There was no evidence of ischemic colitis. A CT of the abdomen and pelvis done on 06/08/2019 shows questionable mild mucosal thickening involving the sigmoid colon which can be seen with mild colitis. There is no evidence of diverticulitis. It shows trace fluid layering in the pelvis that is nonspecific. There is colitis, could be related to this. CT lumbar spine shows interval fusion and laminectomy at L4 and 5 with multilevel degenerative arthropathy that is probably slightly worse than previous study. Several hyperdense renal cortical foci. A pelvic ultrasound done on 06/08/2019 shows no definite abnormality. A CT of the abdomen and pelvis was done on 06/04/2019, shows mild diverticulosis coli with no evidence of diverticulitis and possible mild transverse colonic wall thickening although this may be due to incomplete distention. It could represent mild colitis. CONSULTS: Dr. Iraj Chaves and Dr. Porfirio Reyes. HOSPITAL COURSE: Ms. Chely Pena is an 84-year-old female who came to the ER with abdominal pain, and flank pain and nausea for the past 3 weeks. She has been having this problem for multiple times in the past year. She was seen by Dr. Bird at that time and had a hernia repair with mesh. Since her hernia repair she states the pain has been worsening. She was admitted to the hospital. GI was consulted. CT scans were performed and ultrasounds. There is concern about wall thickening. Mild diverticulosis was noted. Surgery was also consulted. Dr. Bird saw the patient. The patient received a colonoscopy on 06/07/2019. The patient was noted to have 3 to 5 polyps in the right colon. The patient continued to have abdominal pain without a clear evidence of the source. A CT of the lumbar spine was performed to rule out any problems with the bony structures to see if this is what was causing the pain and an abdominal ultrasound was performed. All tests were negative. GI recommends the patient to avoid seeds and nuts for her diverticulosis. Patient did not show any evidence of diverticulitis at this time. Patient is being discharged home at this time. The patient is to follow up with primary care nurse. The patient is to notify primary care nurse for any further problems. DISCHARGE LABORATORY DATA: White blood cell count 4.68, red blood cell count 3.72, hemoglobin 11.7, hematocrit 35.6, MCV is 95.7, MCH is 31.5, MCHC is 32.9, RDW is 14, platelet count 158,000. Sodium is 139, potassium is 3.8, chloride is 98, carbon dioxide is 28, anion gap 13, BUN is 11, creatinine is 1.1, estimated GFR is 47, glucose is 105, calcium is 8.6, TSH is 8.42. DISCHARGE MEDICATIONS: 1. Allopurinol 100 mg p.o. q.a.m. 2. Hydralazine 25 mg p.o. t.i.d. 3. Gabapentin 100 mg p.o. daily. 4. Isosorbide dinitrate 20 mg p.o. t.i.d. 5. Metolazone 5 mg p.o. daily. 6. Requip 3 mg p.o. t.i.d. 7. Synthroid 88 mcg p.o. every morning. 8. Endocet 10/325 one tablet p.o. q.6 hours p.r.n. 9. Lasix 40 mg p.o. q.a.m. DISCHARGE DIET: Resume diet as tolerated. DISCHARGE ACTIVITY: Resume activity as tolerated. DISCHARGE DISPOSITION: Discharge home with self care. Follow up with primary care nurse. Dictated by CLAIRE Castaneda for Jae Stapleton MD Addendum: Patient seen and examined by myself. Agree with CLAIRE note. It reflects my assessment and plan. Patient is being discharged in stable condition. Will be seen by PCP in a week. cc: MD Susie Sousa
== END 2019-06-09 12:36 | disposition home health service (06) | DRG 392 ==
LOC: ED 10:57 → 3N 10:58 → SUATTDRO 10:58 → 3N 06-05 00:07
PROVIDERS: ATTEND Internal Medicine